=== PATIENT | female | born 1995 | race Caucasian/White ===

== ENCOUNTER 2019-09-30 22:49 | Day surgery (SDC) | payer OTHER ==
[2019-09-30 23:15] VITALS: BP 123/67; TEMP 97.8; BMI 32.9
[2019-09-30 23:40] LABS: Amnisure Test No Membranes Rupture (No Rupture)
[2019-09-30 23:41] LABS: Amnisure Internal Control QC ACCEPTABLE (ACCEPTABLE)
[2019-09-30] MEDS ORDERED: hydrALAZINE 20 MG/ML VIAL SLOW IVP PRN (23:48)
--- NOTE | 2019-10-02 08:33 | SS ---
DATE OF ADMISSION: 09/30/2019 DATE OF DISCHARGE: 10/01/2019 REGULAR PHYSICIAN: Yomaira Dias MD EVALUATING PHYSICIAN: Vishnu Metzger MD CHIEF COMPLAINT: Leakage of fluid. HISTORY OF PRESENT ILLNESS: Ms. Bruner is a 23-year-old, white, G2, P1-0-0-1 with an estimated date of confinement of 10/19/2019, who presents complaining of a gush of fluid at 10:30 p.m. She denies vaginal bleeding. Her care has been with Dr. Dias, and has been reportedly uncomplicated. She is scheduled for section at 39 weeks. PAST OBSTETRICAL HISTORY: Includes one previous section for failure to progress at 9 cm. PAST MEDICAL HISTORY: None. PAST SURGICAL HISTORY: as above. CURRENT MEDICATIONS: vitamins. ALLERGIES: NO KNOWN ALLERGIES. SOCIAL HISTORY: Denies tobacco, alcohol, or drug use. FAMILY HISTORY: Unremarkable. REVIEW OF SYSTEMS: Denies nausea, vomiting, fever, or chills. PHYSICAL EXAMINATION: VITAL SIGNS: In triage, her vital signs are stable. She is afebrile. GENERAL: She is pleasant and in no distress. ABDOMEN: Soft, nontender, and gravid. Sterile speculum exam shows the cervix to be long. There is no fluid or pooling in the vagina. Vaginal exam by labor nurse shows the cervix to be 1 cm dilated, 50% effaced and posterior. AmniSure returns negative. ASSESSMENT: 1. 37-week intrauterine . 2. No evidence of ruptured membranes at this time. PLAN: The patient will be dismissed to home with precautions. Dr. Miller has been informed. The patient states she has an appointment with Dr. Dias, this upcoming week. Job ID: [id number]
== END 2019-10-01 00:07 | disposition home or self-care (01) ==
LOC: L&D/OP 22:49
PROVIDERS: ATTEND Obstetrics & Gynecology
DX: O99.89 Other specified diseases and conditions complicating pregnancy, childbirth and the puerperium (principal); N89.8 Other specified noninflammatory disorders of vagina; O34.219 Maternal care for unspecified type scar from previous cesarean delivery; Z3A.37 37 weeks gestation of pregnancy
CPT/HCPCS: 84112

== ENCOUNTER 2019-10-11 02:53 | Outpatient (CLI) | payer OTHER ==
[2019-10-11 18:57] LABS: SARS-CoV-2 MS2 Positive; SARS-CoV-2 N Gene Negative; SARS-CoV-2 S Gene Negative; SARS-CoV-2 orf1ab Negative
== END 2019-10-11 02:54 | disposition home or self-care (01) ==
LOC: ERS 02:53
PROVIDERS: ATTEND Obstetrics & Gynecology
DX: Z01.812 Encounter for preprocedural laboratory examination (principal); Z11.59 Encounter for screening for other viral diseases
CPT/HCPCS: 87635; U0003

== ENCOUNTER 2019-10-13 05:14 | Inpatient (IN) | payer OTHER ==
[2019-10-13] MEDS ORDERED: Lactated Ringer's 1,000 ML IV SCH (05:46)
[2019-10-13] MEDS ORDERED: Bicitra 30 ML UDCUP PO SCH ×2 (05:46→07:30)
[2019-10-13] MEDS ORDERED: Promethazine HCl 25 MG/ML VIAL IM PRN ×3 (05:46→08:14)
[2019-10-13] MEDS ORDERED: Ondansetron PF 4 MG/2 ML Vial IVP PRN ×3 (05:46→09:22)
[2019-10-13] MEDS ORDERED: CEFAZOLIN 2 GM in Premix Bag 1 BAG IVPB SCH (05:46)
[2019-10-13] MEDS ORDERED: hydrALAZINE 20 MG/ML VIAL SLOW IVP PRN ×2 (05:46→09:22)
[2019-10-13 05:55] VITALS: BMI 32.0
[2019-10-13 06:24] LABS: Hemoglobin 11.2 g/dL (12.0-16.0); Mean Corpuscular HGB CONC 32.5 g/dL (32.0-36.0); Mean Corpuscular Hemoglobin 25.8 pg (27.0-31.0); Mean Corpuscular Volume 79.4 fL (78.0-98.0); Mean Platelet Volume 10.2 fL (7.4-10.4); Platelet Count 170 thou/uL (130-400); RBC Distribution Width 12.5 % (11.5-14.5); Red Blood Cell (RBC) Count 4.34 mill/uL (4.20-5.40); White Blood Cell (WBC) Count 9.9 thou/uL (4.8-10.8)
[2019-10-13] MEDS ORDERED: PHENYLEPHRINE-NS 100 MCG/ML 10 ML SYRINGE ONE (06:37)
[2019-10-13] MEDS ORDERED: Oxytocin 10 UNITS/ML VIAL ONE ×2 (06:37→08:19)
[2019-10-13] MEDS ORDERED: EPHEDRINE 25 MG/5 ML SYRINGE ONE (06:37)
[2019-10-13] MEDS ORDERED: MORPHINE 5 MG/10 ML PF VIAL ONE (06:37)
[2019-10-13] MEDS ORDERED: Ondansetron PF 4 MG/2 ML Vial ONE (06:37)
[2019-10-13 06:48] LABS: Syphilis Antibody Nonreactive (Nonreactive); Syphilis Antibody Index 0.05 S/CO (<1.00 Non-Reactive)
[2019-10-13 06:49] LABS: HBSAg Index 0.16 S/CO (0-0.99); Hep B Surf Ag Non-Reactive S/CO (NonReactive)
[2019-10-13] MEDS ORDERED: Ketorolac Tromethamine 30 MG/ML VIAL ONE (07:54)
[2019-10-13] MEDS ORDERED: Naloxone HCl 0.4 mg/ml Vial IVP PRN ×2 (08:14)
[2019-10-13] MEDS ORDERED: Naloxone HCl 0.4 mg/ml Vial IV PRN (08:14)
[2019-10-13] MEDS ORDERED: Promethazine HCl 25 MG/ML VIAL SLOW IVP PRN (08:14)
[2019-10-13] MEDS ORDERED: Ketorolac Tromethamine 30 MG/ML VIAL IVP PRN (08:14)
[2019-10-13] MEDS ORDERED: diphenhydrAMINE 50 MG/ML VIAL IVP PRN (08:14)
[2019-10-13] MEDS ORDERED: Promethazine HCl 25 MG SUPP PR PRN (08:14)
[2019-10-13] MEDS ORDERED: Meperidine HCl/PF 25 MG/ML VIAL SLOW IVP PRN ×2 (08:14→11:17)
[2019-10-13] MEDS ORDERED: Ondansetron HCl/PF 4 MG/2 ML Vial IVP PRN (08:14)
[2019-10-13] MEDS ORDERED: HYDROmorphone 2 MG/ML VIAL SLOW IVP PRN (08:14)
[2019-10-13] MEDS ORDERED: Communication Order-Pharmacy FS SCH (08:15)
[2019-10-13] MEDS ORDERED: Acetaminophen 325 MG TAB PO PRN (09:22)
[2019-10-13] MEDS ORDERED: Bisacodyl 10 MG SUPP PR PRN (09:22)
[2019-10-13] MEDS ORDERED: Lanolin Ointment 7 GM TUBE TOP PRN (09:22)
[2019-10-13] MEDS ORDERED: Zolpidem Tartrate 5 MG TAB PO PRN (09:22)
[2019-10-13] MEDS ORDERED: diphenhydrAMINE 25 MG CAP PO PRN (09:22)
[2019-10-13] MEDS ORDERED: Adacel (T-DAP) 0.5 ML SYRINGE IM ONE (09:22)
[2019-10-13] MEDS ORDERED: Simethicone Chewable 80 MG TAB PO PRN (09:22)
[2019-10-13] MEDS ORDERED: Misoprostol 200 MCG TAB PR PRN (09:22)
[2019-10-13] MEDS ORDERED: NS / Oxytocin 40 units/1000ml 1,000 ML IV SCH (09:30)
[2019-10-13] MEDS ORDERED: Meperidine HCl/PF 25 MG/ML VIAL ONE (11:12)
[2019-10-13] MEDS: Ferrous Sulfate 325 MG TAB PO SCH (17:13)
[2019-10-13] MEDS: Lactated Ringer's 1,000 ML IV SCH ×2 (19:05→19:06)
[2019-10-13] MEDS ORDERED: HYDROcodone/Acetaminophen 5/325 mg Tablet PO PRN (20:15)
[2019-10-13] MEDS ORDERED: Meperidine HCl/PF 25 MG/ML VIAL IM PRN (20:15)
[2019-10-13] MEDS: Docusate Calcium (SURFAK) 240 MG CAP PO SCH (20:40)
[2019-10-13] MEDS: HYDROcodone/Acetaminophen 5/325 mg Tablet PO PRN (22:46)
[2019-10-14] MEDS: Lactated Ringer's 1,000 ML IV SCH ×3 (00:07→16:00)
[2019-10-14] MEDS: HYDROcodone/Acetaminophen 5/325 mg Tablet PO PRN ×3 (04:41→20:30)
[2019-10-14 06:58] LABS: Hemoglobin 10.6 g/dL (12.0-16.0); Mean Corpuscular HGB CONC 31.6 g/dL (32.0-36.0); Mean Corpuscular Hemoglobin 25.3 pg (27.0-31.0); Mean Corpuscular Volume 80.2 fL (78.0-98.0); Mean Platelet Volume 9.9 fL (7.4-10.4); Platelet Count 164 thou/uL (130-400); RBC Distribution Width 12.5 % (11.5-14.5); Red Blood Cell (RBC) Count 4.18 mill/uL (4.20-5.40); White Blood Cell (WBC) Count 11.9 thou/uL (4.8-10.8)
--- NOTE | 2019-10-14 07:58 | OP ---
DATE OF PROCEDURE: 10/13/2019 Surgeon: Barby Dias MD RESIDENT SURGEON: Sharyn Flowers DO PROCEDURE PERFORMED: Repeat low transverse section. PREOPERATIVE DIAGNOSES: 1. Term intrauterine . 2. Previous . 3. History of spontaneous . POSTOPERATIVE DIAGNOSES: 1. Term intrauterine , delivered. 2. Previous . 3. History of spontaneous . ANESTHESIA: Spinal. INDICATIONS FOR PROCEDURE: This is a 23-year-old G3, P1-0-1-1 at 39.2 weeks gestation, who presents for a scheduled repeat . DESCRIPTION OF PROCEDURE: After risks, benefits, and alternatives were explained to the patient, she gave informed consent. Preoperative antibiotics included cefazolin 2 g IV. The patient was taken to the operating room and spinal anesthesia was initiated. She was placed in supine position with a left tilt and prepped and draped in the usual sterile fashion. The previous scar was excised in an elliptical fashion and the Pfannenstiel incision was carried down to the level of fascia utilizing Bovie. Then, the scalpel was used to sharply lucila the fascia. The fascial cut was extended bilaterally with Barbosa scissors. Inferior and superior edges of the cut fascial edges were elevated with Nicolasa clamps and the underlying rectus muscles were sharply dissected free using curved Barbosa scissors. The recti were divided using 2 hemostats and Metzenbaum scissors. They were then retracted manually. The peritoneum was entered bluntly and retracted manually. Bladder blade was placed. Bladder flap was created with Metzenbaum scissors. Low-transverse score was made with a scalpel and the uterus was entered in the midline with the scalpel. Allis clamp was used for AROM and clear fluid was seen. Hysterotomy was extended manually. Infant was noted to be vertex and was delivered utilizing vacuum assistance with no pop-offs. The vacuum was in place for less than 10 seconds prior to delivery through the hysterotomy. Nuchal cord x1, reduced. Mouth and nares were bulb suctioned. Cord was clamped and cut and grossly normal female was handed to the awaiting nurse. Cord blood was obtained. Placenta was manually extracted, found to be intact with three-vessel cord and discarded. The uterus was externalized and the endometrium was curetted with a dry lap. The bladder blade was replaced and the uterus was closed with a running locking #1 Chromic suture. Several [id number] stitches were utilized in the lateral aspect of the hysterotomy for hemostasis. The bladder flap was closed using 2-0 Monocryl. The abdomen was irrigated and suctioned free of clots. Seprafilm was placed. Several uterine adhesions were taken down utilizing bovie. The uterus was then internalized and hysterotomy was again noted to be hemostatic. The peritoneum was closed using 2-0 Vicryl in a running nonlocking fashion. The rectus muscles were then brought together using 2-0 chromic in [id number] stitches. The rectus muscles were examined for bleeders and bleeders were cauterized. The fascia was then brought together using 0 Vicryl suture in a running nonlocking fashion. The subcutaneous tissue was irrigated and bleeders were cauterized. The subcutaneous tissue was approximated using 2-0 plain gut in simple interrupted fashion in several layers. The skin was then brought together using 4-0 monofilament. Dermabond was applied. Pressure dressing was then placed. All counts were correct. The patient tolerated the procedure well and was taken to the recovery room in stable condition. ESTIMATED BLOOD LOSS: 654 mL. COMPLICATIONS: None. SPECIMEN: Cord blood sent to lab for blood type. FINDINGS: Grossly normal female with Apgars of 8 and 9 at 1 and 5 minutes respectively. Infant weight of 3.764 kg. Grossly normal placenta with 3-vessel cord discarded. DRAINS: Curran to gravity draining clear urine. Job ID: [id number] [id number]
[2019-10-14] MEDS: Prenatal Vitamin 1 TAB PO SCH (08:11)
[2019-10-14] MEDS: Docusate Calcium (SURFAK) 240 MG CAP PO SCH ×2 (08:11→20:31)
[2019-10-14] MEDS: Ferrous Sulfate 325 MG TAB PO SCH ×2 (08:12→16:00)
[2019-10-14] MEDS: Ibuprofen 800 MG TAB PO SCH ×2 (13:52→21:42)
[2019-10-15] MEDS: Ibuprofen 800 MG TAB PO SCH (05:41)
[2019-10-15] MEDS: Lactated Ringer's 1,000 ML IV SCH ×2 (05:43→09:00)
[2019-10-15] MEDS: Ferrous Sulfate 325 MG TAB PO SCH (09:00)
[2019-10-15] MEDS: Prenatal Vitamin 1 TAB PO SCH (09:13)
[2019-10-15] MEDS: Docusate Calcium (SURFAK) 240 MG CAP PO SCH (09:13)
[2019-10-15 09:59] VITALS: BP 109/73; TEMP 98.8
[2019-10-15] MEDS: HYDROcodone/Acetaminophen 5/325 mg Tablet PO PRN (12:05)
== END 2019-10-15 13:10 | disposition home or self-care (01) | DRG 788 ==
LOC: L&D 05:14 → 3SW 11:54
PROVIDERS: ADMIT Obstetrics & Gynecology; ATTEND Obstetrics & Gynecology
PROC: 10D00Z1 Extraction of Products of Conception, Low, Open Approach (ICD-10-PCS; principal; 2019-10-13)
DX: O34.211 Maternal care for low transverse scar from previous cesarean delivery (principal); Z3A.39 39 weeks gestation of pregnancy; Z37.0 Single live birth
CPT/HCPCS: 36415; 51702; 85027; 85460; 86780; 86850; 86900; 86901; 87340; 90384; 96372; J0690; J1885; J2175; J2274; J2405; J2590